=== PATIENT | female | born 2000 | race Two or more races ===

== ENCOUNTER 2018-03-12 21:33 | Emergency (ER) | payer OTHER ==
[~2018-03-12] VITALS: Ht 160 cm; Wt 78.0 kg
[2018-03-12] MEDS ORDERED: PRENATABS FA T1 EACH (22:02)
== END 2018-03-13 02:43 | disposition home or self-care (01) ==
LOC: ER 21:33 → EDSEX 22:03 → ER 22:03
DX: O26.891 Other specified pregnancy related conditions, first trimester (principal); R10.2 Pelvic and perineal pain; Z34.01 Encounter for supervision of normal first pregnancy, first trimester

== ENCOUNTER 2018-03-19 21:38 | Emergency (ER) | payer OTHER ==
[~2018-03-19] VITALS: Ht 160 cm; Wt 78.0 kg
[~2018-03-19 21:38] MED LIST: PRENATABS FA T1 EACH
[2018-03-19] MEDS ORDERED: PROGESTERONE200 MG PO (21:51)
== END 2018-03-20 00:25 | disposition home or self-care (01) ==
LOC: ER 21:38
DX: O20.0 Threatened abortion (principal); Z34.81 Encounter for supervision of other normal pregnancy, first trimester

== ENCOUNTER 2018-03-25 20:36 | Emergency (ER) | payer OTHER ==
[~2018-03-25] VITALS: Ht 160 cm; Wt 78.0 kg
[~2018-03-25 20:36] MED LIST changes: +PROGESTERONE200 MG PO
== END 2018-03-25 23:26 | disposition home or self-care (01) ==
LOC: ER 20:36
DX: O20.8 Other hemorrhage in early pregnancy (principal); Z34.01 Encounter for supervision of normal first pregnancy, first trimester

== ENCOUNTER 2018-04-03 09:23 | Emergency (ER) | payer OTHER ==
[~2018-04-03] VITALS: Ht 160 cm; Wt 78.5 kg
== END 2018-04-03 14:21 | disposition home or self-care (01) ==
LOC: ER 09:23
DX: O98.511 Other viral diseases complicating pregnancy, first trimester (principal); B34.9 Viral infection, unspecified; H10.89 Other conjunctivitis; Z34.01 Encounter for supervision of normal first pregnancy, first trimester

== ENCOUNTER 2018-04-07 19:03 | Emergency (ER) | payer OTHER ==
[~2018-04-07] VITALS: Ht 160 cm; Wt 78.5 kg
== END 2018-04-08 00:32 | disposition home or self-care (01) ==
LOC: ER 19:03
DX: O20.8 Other hemorrhage in early pregnancy (principal); Z34.81 Encounter for supervision of other normal pregnancy, first trimester

== ENCOUNTER 2018-04-12 19:19 | Emergency (ER) | payer OTHER ==
[~2018-04-12] VITALS: Ht 160 cm; Wt 78.9 kg
[2018-04-12] MEDS ORDERED: OBSTETRIX DHA1 EACH (19:30)
[2018-04-12] MEDS ORDERED: PROGESTERONE200 MG (19:31)
[2018-04-12] MEDS ORDERED: CEPHALEXIN500 M1 PO (23:53)
== END 2018-04-13 00:03 | disposition home or self-care (01) ==
LOC: ER 19:19
DX: O20.0 Threatened abortion (principal); O23.41 Unspecified infection of urinary tract in pregnancy, first trimester; Z34.01 Encounter for supervision of normal first pregnancy, first trimester

== ENCOUNTER 2018-04-20 21:51 | Emergency (ER) | payer OTHER ==
[~2018-04-20] VITALS: Ht 160 cm; Wt 78.5 kg
[~2018-04-20 21:51] MED LIST changes: +CEPHALEXIN500 M1 PO; +OBSTETRIX DHA1 EACH; +PROGESTERONE200 MG
== END 2018-04-20 23:11 | disposition home or self-care (01) ==
LOC: ER 21:51
DX: O20.8 Other hemorrhage in early pregnancy (principal); R10.2 Pelvic and perineal pain; Z34.01 Encounter for supervision of normal first pregnancy, first trimester

== ENCOUNTER 2018-04-27 00:24 | Emergency (ER) | payer OTHER ==
[~2018-04-27] VITALS: Ht 160 cm; Wt 78.5 kg
[2018-04-27] MEDS ORDERED: PANADOL EXTRA500 MG (00:56)
== END 2018-04-27 06:45 | disposition home or self-care (01) ==
LOC: ER 00:24
DX: O26.891 Other specified pregnancy related conditions, first trimester (principal); S30.1XXA Contusion of abdominal wall, initial encounter; W18.09XA Striking against other object with subsequent fall, initial encounter; Y93.89 Activity, other specified; Y92.098 Other place in other non-institutional residence as the place of occurrence of the external cause; Y99.8 Other external cause status; Z34.01 Encounter for supervision of normal first pregnancy, first trimester

== ENCOUNTER 2018-05-03 15:11 | Emergency (ER) | payer OTHER ==
[~2018-05-03] VITALS: Ht 160 cm; Wt 78.5 kg
[~2018-05-03 15:11] MED LIST changes: +PANADOL EXTRA500 MG
== END 2018-05-03 20:47 | disposition home or self-care (01) ==
LOC: ER 15:11
DX: O21.0 Mild hyperemesis gravidarum (principal); O23.42 Unspecified infection of urinary tract in pregnancy, second trimester; Z34.02 Encounter for supervision of normal first pregnancy, second trimester

== ENCOUNTER 2018-05-05 17:20 | Emergency (ER) | payer OTHER ==
[~2018-05-05] VITALS: Ht 160 cm; Wt 78.5 kg
[2018-05-05] MEDS ORDERED: DUI500 (18:27)
== END 2018-05-05 21:58 | disposition home or self-care (01) ==
LOC: ER 17:20
DX: O20.8 Other hemorrhage in early pregnancy (principal); Z34.82 Encounter for supervision of other normal pregnancy, second trimester

== ENCOUNTER 2018-05-09 23:12 | Emergency (ER) | payer OTHER ==
[~2018-05-09] VITALS: Ht 160 cm; Wt 78.5 kg
[~2018-05-09 23:12] MED LIST changes: +DUI500
== END 2018-05-10 07:28 | disposition home or self-care (01) ==
LOC: ER 23:12
DX: O26.892 Other specified pregnancy related conditions, second trimester (principal); R10.2 Pelvic and perineal pain; Z34.02 Encounter for supervision of normal first pregnancy, second trimester

== ENCOUNTER 2018-05-11 08:17 | Day surgery (SDC) | payer OTHER | END 2018-05-11 16:05 | disposition home or self-care (01) | LOC: CIR.AMB 08:17 | DX: O34.32 Maternal care for cervical incompetence, second trimester (principal); Z3A.16 16 weeks gestation of pregnancy ==

== ENCOUNTER 2018-05-15 16:10 | Emergency (ER) | payer OTHER ==
[~2018-05-15] VITALS: Ht 160 cm; Wt 78.5 kg
== END 2018-05-15 19:39 | disposition home or self-care (01) ==
LOC: ER 16:10
DX: N30.80 Other cystitis without hematuria (principal)

== ENCOUNTER 2018-05-31 19:29 | Emergency (ER) | payer OTHER ==
[~2018-05-31] VITALS: Ht 160 cm; Wt 60.8 kg
== END 2018-06-01 00:03 | disposition home or self-care (01) ==
LOC: ER 19:29
DX: O20.0 Threatened abortion (principal); Z34.02 Encounter for supervision of normal first pregnancy, second trimester

== ENCOUNTER 2018-06-10 21:16 | Outpatient (CLI) | payer OTHER ==
[2018-06-11] MEDS ORDERED: IRON325 MG PO (08:16)
== END 2018-06-11 09:45 | disposition home or self-care (01) ==
LOC: OBS/DEL 21:16
DX: O34.32 Maternal care for cervical incompetence, second trimester (principal); O99.012 Anemia complicating pregnancy, second trimester; D64.89 Other specified anemias; Z34.02 Encounter for supervision of normal first pregnancy, second trimester

== ENCOUNTER 2018-06-22 17:32 | Inpatient (IN) | payer OTHER ==
[~2018-06-22] VITALS: Ht 160 cm; Wt 78.9 kg
[~2018-06-22 17:32] MED LIST changes: +IRON325 MG PO
[2018-06-25] MEDS ORDERED: PRENATAL DHA200 MG PO (08:26)
[2018-06-25] MEDS ORDERED: IRON325 MG PO (08:26)
[2018-06-25] MEDS ORDERED: KEFLEX500 MG PO (08:30)
[2018-06-25] MEDS ORDERED: NIFE60TA3 PO (08:30)
== END 2018-06-25 10:56 | DRG 832 ==
LOC: OBS/DEL 17:32 → OB/GYN 06-23 14:30 → LDR 06-23 14:30 → OB/GYN 06-23 17:10
PROC: 4A1HXCZ Monitoring of Products of Conception, Cardiac Rate, External Approach (ICD-10-PCS; principal; 2018-06-23)
DX: O26.872 Cervical shortening, second trimester (principal); O23.32 Infections of other parts of urinary tract in pregnancy, second trimester; O23.12 Infections of bladder in pregnancy, second trimester; O26.22 Pregnancy care for patient with recurrent pregnancy loss, second trimester; O34.32 Maternal care for cervical incompetence, second trimester; O99.012 Anemia complicating pregnancy, second trimester; D64.89 Other specified anemias; Z34.82 Encounter for supervision of other normal pregnancy, second trimester

== ENCOUNTER 2018-08-10 19:12 | Inpatient (IN) | payer OTHER ==
[~2018-08-10] VITALS: Ht 160 cm; Wt 78.9 kg
[~2018-08-10 19:12] MED LIST changes: +KEFLEX500 MG PO; +NIFE60TA3 PO; +PRENATAL DHA200 MG PO
[2018-08-10] MEDS ORDERED: NIFE60TA3 PO (19:22)
[2018-08-10] MEDS ORDERED: PRENATAL TABLE1 EAC1 PO (19:22)
== END 2018-08-13 16:20 | disposition left against medical advice (07) | DRG 833 ==
LOC: OBS/DEL 19:12 → LDR 08-11 09:47 → OBS/DEL 08-11 09:47 → OB/GYN 08-12 10:28
PROVIDERS: ADMIT Specialist
PROC: BY4FZZZ Ultrasonography of Third Trimester, Single Fetus (ICD-10-PCS; principal; 2018-08-11)
PROC: 4A1HXCZ Monitoring of Products of Conception, Cardiac Rate, External Approach (ICD-10-PCS; 2018-08-11)
DX: O47.03 False labor before 37 completed weeks of gestation, third trimester (principal); Z34.83 Encounter for supervision of other normal pregnancy, third trimester

== ENCOUNTER 2018-09-24 06:50 | Outpatient (CLI) | payer OTHER ==
[~2018-09-24 06:50] MED LIST changes: +PRENATAL TABLE1 EAC1 PO
[2018-09-24] MEDS ORDERED: AMPICILLIN TRI500 MG PO (08:26)
== END 2018-09-24 11:01 | disposition home or self-care (01) ==
LOC: OBS/DEL 06:50
DX: O60.03 Preterm labor without delivery, third trimester (principal); O23.593 Infection of other part of genital tract in pregnancy, third trimester; B96.89 Other specified bacterial agents as the cause of diseases classified elsewhere; N76.0 Acute vaginitis; Z34.83 Encounter for supervision of other normal pregnancy, third trimester

== ENCOUNTER 2018-09-27 09:47 | Outpatient (CLI) | payer OTHER ==
[~2018-09-27 09:47] MED LIST changes: +AMPICILLIN TRI500 MG PO
== END 2018-09-27 10:31 | disposition home or self-care (01) ==
LOC: NST 09:47
DX: Z34.83 Encounter for supervision of other normal pregnancy, third trimester (principal)

== ENCOUNTER 2018-10-02 09:30 | Inpatient (IN) | payer OTHER ==
[~2018-10-02] VITALS: Ht 160 cm; Wt 89.8 kg
== END 2018-10-11 15:23 | DRG 768 ==
LOC: LDR 09:30 → OB/GYN 10-09 05:12 → LDR 10-09 05:12 → OB/GYN 10-09 20:22
PROVIDERS: ADMIT Specialist
PROC: 10E0XZZ Delivery of Products of Conception, External Approach (ICD-10-PCS; principal; 2018-10-09)
PROC: 0UQC0ZZ Repair Cervix, Open Approach (ICD-10-PCS; 2018-10-09)
PROC: 4A1HXCZ Monitoring of Products of Conception, Cardiac Rate, External Approach (ICD-10-PCS; 2018-10-09)
DX: O71.3 Obstetric laceration of cervix (principal); Z37.0 Single live birth; Z3A.38 38 weeks gestation of pregnancy; Z22.330 Carrier of Group B streptococcus

== ENCOUNTER 2021-07-30 06:47 | Day surgery (SDC) | payer OTHER | END 2021-07-30 17:55 | disposition home or self-care (01) | LOC: CIR.AMB 06:47 | PROVIDERS: ATTEND Specialist | DX: O34.31 Maternal care for cervical incompetence, first trimester (principal); Z3A.12 12 weeks gestation of pregnancy; Z20.822 Contact with and (suspected) exposure to COVID-19 ==

== ENCOUNTER 2021-09-24 16:08 | Outpatient (CLI) | payer OTHER ==
[2021-09-24] MEDS ORDERED: ENDOMETRIN100 MG (17:06)
== END 2021-09-24 18:00 | disposition home or self-care (01) ==
LOC: OBS/DEL 16:08
PROVIDERS: ATTEND Specialist
DX: O26.892 Other specified pregnancy related conditions, second trimester (principal); R10.2 Pelvic and perineal pain; Z3A.20 20 weeks gestation of pregnancy

== ENCOUNTER → 2022-01-28 | Outpatient (CLI) | payer OTHER ==
[~2022-01-28] MED LIST changes: +ENDOMETRIN100 MG; +FERROUS SULFAT325 MG PO
== END | disposition left against medical advice (07) ==
LOC: OBS/DEL 20:13
PROVIDERS: ATTEND Specialist
DX: O47.1 False labor at or after 37 completed weeks of gestation (principal); Z3A.38 38 weeks gestation of pregnancy

== ENCOUNTER 2022-02-04 05:13 | Inpatient (IN) | payer OTHER ==
[~2022-02-04] VITALS: Ht 160 cm; Wt 88.5 kg
[~2022-02-04 05:13] MED LIST changes: -FERROUS SULFAT325 MG PO
[2022-02-06] MEDS ORDERED: FERROUS SULFAT325 MG PO (08:12)
== END 2022-02-06 12:59 | disposition home or self-care (01) | DRG 768 ==
LOC: LDR 05:13 → OB/GYN 05:13 → O/R 18:31 → OB/GYN 02-05 07:42
PROVIDERS: ADMIT Specialist; ATTEND Specialist
PROC: 0UQC7ZZ Repair Cervix, Via Natural or Artificial Opening (ICD-10-PCS; 2022-02-04)
PROC: 3E033VJ Introduction of Other Hormone into Peripheral Vein, Percutaneous Approach (ICD-10-PCS; 2022-02-04)
PROC: 4A1HXCZ Monitoring of Products of Conception, Cardiac Rate, External Approach (ICD-10-PCS; 2022-02-04)
PROC: 10E0XZZ Delivery of Products of Conception, External Approach (ICD-10-PCS; principal; 2022-02-04 15:00)
DX: O71.3 Obstetric laceration of cervix (principal); O72.1 Other immediate postpartum hemorrhage; Z37.0 Single live birth; Z3A.39 39 weeks gestation of pregnancy; Z20.822 Contact with and (suspected) exposure to COVID-19

== ENCOUNTER 2022-09-26 23:12 | Emergency (ER) | payer OTHER ==
[~2022-09-26] VITALS: Ht 160 cm; Wt 78.9 kg
[~2022-09-26 23:12] MED LIST changes: +FERROUS SULFAT325 MG PO
== END 2022-09-27 04:49 | disposition home or self-care (01) ==
LOC: ER 23:12
DX: O03.6 Delayed or excessive hemorrhage following complete or unspecified spontaneous abortion (principal)

== ENCOUNTER 2024-02-19 10:07 | Inpatient (IN) | payer OTHER ==
[~2024-02-19] VITALS: Ht 160 cm; Wt 81.6 kg
--- NOTE | 2024-02-19 10:32 | NUR ---
PTE FEMENINA REFIERE EMBARAZADA DE 9 SEMANAS DE GESTACION CON SANGRADO PROFUSO Y CUAGULOS.PTE REFIERE COMENZANDO DOLOR HACE VARIOS MINUTOS, SE LE MAGI S/V Y SE UBICA EN EZEKIEL .
--- NOTE | 2024-02-19 11:19 | NUR ---
RN DIAZ EDUCA APTE SOBRE TX A RECIBIR EN EL AREA LA MISMA REFIERE ENTENDER. SE REALIZAN MUESTRAS GARY ORDEN MEDICA Y SE ENVIAN DE FORMA INMEDIATA. SE NOTIFICA A SECRETARIA DE TURNO SOBRE ESTUDIO PENDIENTE.
[2024-02-19 12:13] LABS: HEMATOCRIT 33.3 % (36.0-45.00); HEMOGLOBIN 11.2 g/dL (12.0-15.00); MEAN CELL VOLUME 79.1 fL (80.00-100.00); MEAN CORPUSCULAR HEMOGLOBIN 26.6 pg (27.00-32.0); MEAN CORPUSCULAR HGB CONC 33.6 g/dl (32.0-36.0); PLATELET COUNT 292 K/uL (150-450); RED BLOOD COUNT 4.21 M/uL (4.00-6.00); RED CELL DISTRIBUTION WIDTH 14.4 % (11.5-14.5)
[2024-02-19] MEDS ORDERED: PROMETHAZINE HCL 50 MG/ML AMPUL IM ONE (13:15)
[2024-02-19] MEDS ORDERED: ACETAMINOPHEN 500 MG GEL..CAP PO ONE (13:15)
[2024-02-19] MEDS ORDERED: MEPERIDINE HCL/PF 50 MG/ML VIAL IM PRN (15:30)
[2024-02-19] MEDS ORDERED: RINGERS SOLUTION,LACTATED 1,000 ML IV SCH (15:30)
[2024-02-19] MEDS ORDERED: OXYTOCIN 20 UNITS/1000ML RL PIGGYBAG IV SCH (15:30)
[2024-02-19 16:38] LABS: INR 1.02; PARTIAL THROMBOPLASTIN TIME 26.8 SECONDS (22.0-34.0); PROTHROMBIN TIME 10.7 SECONDS (9.0-11.5)
[2024-02-19] MEDS ORDERED: ONDANSETRON HCL 2 MG/ML VIAL IV SCH (17:00)
[2024-02-19] MEDS ORDERED: CEFAZOLIN SODIUM 1,000 MG in DEXTROSE 5 % IN WATER 50 ML IV SCH (17:00)
[2024-02-20] MEDS ORDERED: OxyCODONE HCL/APAP UD (PERCOCET) PO PRN (16:15)
[2024-02-20] MEDS ORDERED: ACETAMINOPHEN 500 MG GEL..CAP PO PRN (16:15)
[2024-02-20] MEDS ORDERED: POVIDONE-IODINE 118 ML BOTT TOP ONE (16:30)
[2024-02-20] MEDS ORDERED: OXYTOCIN 20 UNITS/1000ML RL PIGGYBAG IV ONE (16:30)
[2024-02-20] MEDS ORDERED: CEFAZOLIN SODIUM 1,000 MG VIAL IV ONE (16:30)
[2024-02-21 04:57] LABS: HEMATOCRIT 25.6 % (36.0-45.00); HEMOGLOBIN 8.6 g/dL (12.0-15.00); MEAN CELL VOLUME 78.2 fL (80.00-100.00); MEAN CORPUSCULAR HEMOGLOBIN 26.2 pg (27.00-32.0); MEAN CORPUSCULAR HGB CONC 33.6 g/dl (32.0-36.0); PLATELET COUNT 219 K/uL (150-450); RED BLOOD COUNT 3.27 M/uL (4.00-6.00); RED CELL DISTRIBUTION WIDTH 14.4 % (11.5-14.5)
[2024-02-21] MEDS ORDERED: FERROUS SULFAT325 MG PO (08:15)
== END 2024-02-21 09:58 | disposition home or self-care (01) | DRG 779 ==
LOC: ER 10:09 → OB/GYN 15:58
PROVIDERS: General Practice; ADMIT Specialist; ATTEND Specialist
PROC: BU4CZZZ Ultrasonography of Uterus and Ovaries (ICD-10-PCS; principal; 2024-02-19)
PROC: BY49ZZZ Ultrasonography of First Trimester, Single Fetus (ICD-10-PCS; 2024-02-19)
PROC: 3E033VJ Introduction of Other Hormone into Peripheral Vein, Percutaneous Approach (ICD-10-PCS; 2024-02-19)
PROC: 10D17Z9 Manual Extraction of Products of Conception, Retained, Via Natural or Artificial Opening (ICD-10-PCS; 2024-02-20)
DX: O03.4 Incomplete spontaneous abortion without complication (principal); O36.80X0 Pregnancy with inconclusive fetal viability, not applicable or unspecified; D64.9 Anemia, unspecified; O26.851 Spotting complicating pregnancy, first trimester; Z3A.01 Less than 8 weeks gestation of pregnancy; Z20.822 Contact with and (suspected) exposure to COVID-19

== ENCOUNTER 2024-07-03 08:48 | Emergency (ER) | payer OTHER ==
[~2024-07-03] VITALS: Ht 160 cm; Wt 81.2 kg
[2024-07-03 08:51] VITALS: BP 120/69; O2SAT 97
[2024-07-03 10:49] LABS: URINE APPEARANCE Cloudy; URINE BILIRRUBIN Negative (NEGATIVE); URINE BLOOD Large; URINE COLOR Yellow; URINE GLUCOSE Negative (NEGATIVE); URINE KETONE Negative (NEGATIVE); URINE LEUKOCYTE Large; URINE NITRATE Negative; URINE PROTEIN Negative (NEGATIVE); URINE UROBILINOGEN 0.2 E.U./dl
[2024-07-03 10:53] LABS: URINE BACTERIA 2194.8 uL (0.0-1933); URINE EPITHELIAL CELLS 77.9 uL (0.0-38.8); URINE RBC 20.1 uL (0.0-20.8); URINE WBC 122.1 uL (0.0-23.2)
[2024-07-03 10:58] LABS: HEMATOCRIT 34.6 % (36.0-45.00); HEMOGLOBIN 11.2 g/dL (12.0-15.00); MEAN CORPUSCULAR HEMOGLOBIN 23.7 pg (27.00-32.0); MEAN CORPUSCULAR HGB CONC 32.5 g/dl (32.0-36.0); PLATELET COUNT 304 K/uL (150-450); RED BLOOD COUNT 4.75 M/uL (4.00-6.00)
[2024-07-03 11:00] LABS: MEAN CELL VOLUME 72.9 fL (80.00-100.00); RED CELL DISTRIBUTION WIDTH 17.8 % (11.5-14.5)
[2024-07-03 11:07] LABS: URINE CAST 0.45 uL (0.0-1.40)
[2024-07-03 11:41] LABS: CREATININE SERUM 0.7 mg/dL (0.55-1.02); GFR 101.95; POTASSIUM 4.21 mEq/L (3.5-5.1)
== END 2024-07-03 13:58 | disposition home or self-care (01) ==
LOC: ER 08:50
PROVIDERS: General Practice
DX: O20.9 Hemorrhage in early pregnancy, unspecified (principal); Z3A.01 Less than 8 weeks gestation of pregnancy; Z87.09 Personal history of other diseases of the respiratory system

== ENCOUNTER 2024-07-23 14:47 | Emergency (ER) | payer OTHER ==
[~2024-07-23] VITALS: Ht 162.6 cm; Wt 79.4 kg
[2024-07-23] MEDS ORDERED: PRENATABS RX T1 EACH (15:15)
[2024-07-23] MEDS ORDERED: PROMETRIUM200 MG (15:15)
[2024-07-23 16:51] LABS: HEMATOCRIT 37.3 % (36.0-45.00); HEMOGLOBIN 12.3 g/dL (12.0-15.00); MEAN CELL VOLUME 74.4 fL (80.00-100.00); MEAN CORPUSCULAR HEMOGLOBIN 24.4 pg (27.00-32.0); MEAN CORPUSCULAR HGB CONC 32.9 g/dl (32.0-36.0); PLATELET COUNT 314 K/uL (150-450); RED BLOOD COUNT 5.02 M/uL (4.00-6.00); RED CELL DISTRIBUTION WIDTH 17.7 % (11.5-14.5)
[2024-07-23 17:50] LABS: PH,URINE 7.5 (5.0-8.0); URINE APPEARANCE Clear; URINE BILIRRUBIN Negative (NEGATIVE); URINE BLOOD Moderate; URINE COLOR Yellow; URINE GLUCOSE Negative (NEGATIVE); URINE KETONE Negative (NEGATIVE); URINE LEUKOCYTE Negative; URINE NITRATE Negative; URINE PROTEIN Negative (NEGATIVE); URINE UROBILINOGEN 0.2 E.U./dl
[2024-07-23 17:54] LABS: URINE BACTERIA 1900.5 uL (0.0-1933); URINE EPITHELIAL CELLS 27.8 uL (0.0-38.8); URINE RBC 3.3 uL (0.0-20.8)
== END 2024-07-23 19:51 | disposition home or self-care (01) ==
LOC: ER 14:49
PROVIDERS: General Practice
DX: O20.9 Hemorrhage in early pregnancy, unspecified (principal); Z3A.10 10 weeks gestation of pregnancy

== ENCOUNTER → 2024-07-25 | Day surgery (SDC) | payer OTHER ==
--- NOTE | 2024-07-24 16:59 | NUR ---
PTE ALERTA Y ORIENTADA X3. REFIERE TENER 6 SEMANAS DE EMBARAZO Y KOLBY EXPERIMENTADO UN ABORTO. REFIERE QUE TAYLOR GINECOLOGO ES DR. BLUE PEREZ. SE YVES DALILA Y SE UBICA
--- NOTE | 2024-07-24 17:31 | NUR ---
PTE EVALUADA POR LA DRA. COELLO. JIM COELLO COLECTA MUESTRA DE LAB GARY ORDEN MEDICA BAJO MEDIDAS ASEPTICAS. SE NOTIFICA SONOGRAMA PENDIENTE.
[2024-07-24 17:39] LABS: HEMATOCRIT 35.6 % (36.0-45.00); HEMOGLOBIN 11.8 g/dL (12.0-15.00); MEAN CELL VOLUME 74.4 fL (80.00-100.00); MEAN CORPUSCULAR HEMOGLOBIN 24.7 pg (27.00-32.0); MEAN CORPUSCULAR HGB CONC 33.2 g/dl (32.0-36.0); PLATELET COUNT 297 K/uL (150-450); RED BLOOD COUNT 4.79 M/uL (4.00-6.00); RED CELL DISTRIBUTION WIDTH 17.7 % (11.5-14.5)
--- NOTE | 2024-07-24 18:38 | NUR ---
SE CANALIZA Y SE ADMINISTRAN MEDICAMENTOS GARY ORDEN MEDICA.
[2024-07-24 19:46] LABS: INR 1.04; PARTIAL THROMBOPLASTIN TIME 31.3 SECONDS (22.0-34.0); PROTHROMBIN TIME 11.3 SECONDS (9.0-11.5)
[2024-07-24 21:47] LABS: URINE APPEARANCE Clear; URINE BILIRRUBIN Negative (NEGATIVE); URINE BLOOD Negative; URINE COLOR Yellow; URINE GLUCOSE Negative (NEGATIVE); URINE KETONE Negative (NEGATIVE); URINE LEUKOCYTE Negative; URINE NITRATE Negative; URINE PROTEIN Negative (NEGATIVE)
[2024-07-24 21:50] LABS: URINE BACTERIA 482.2 uL (0.0-1933); URINE EPITHELIAL CELLS 12.4 uL (0.0-38.8); URINE WBC 3.4 uL (0.0-23.2)
[2024-07-24 22:03] LABS: URINE CAST 0.58 uL (0.0-1.40); URINE RBC 1.7 uL (0.0-20.8)
[~2024-07-25] VITALS: Ht 160 cm; Wt 76.7 kg
[~2024-07-25] MED LIST changes: +CEFAZOLIN SODIUM 1,000 MG VIAL IV SCH; +FAMOtidine 10 MG/ML (4ML VIAL) IV ONE; +KETOROLAC TROMETHAMINE 60 MG VIAL IM STA; +MORPHINE SULFATE 4 MG/ML VIAL IV ONE; +OXYTOCIN 10 UNITS/ML VIAL IV SCH; +OXYTOCIN 20 UNITS/1000ML RL PIGGYBAG IV ONE; +PRENATABS RX T1 EACH; +PROMETRIUM200 MG; +RINGERS SOLUTION,LACTATED 1,000 ML IV ONE
--- NOTE | 2024-07-25 05:54 | NUR ---
DR MCARTHUR VISITA A PTE Y EDUCA A LA MISMA.
--- NOTE | 2024-07-25 06:05 | NUR ---
SE EDUCA A PTE SOBRE ORDENES DE ADMISION A REALIZAR POR DR PEREZ LA MISMA ALERTA Y ORIENTADA X3 REFIERE ENTENDER. SE REALIZAN MUESTRAS DE LAB GARY ORDEN MEDICA Y SE LE YARA ROPA PARA EVAN DE OPOERACIONES. DR PEREZ LE YARA DOCUMENTO PARA AUTORIZACION DE PROCESO CON DR. SE EDUCA A LA MISMA SOBRE PERTENENCIAS Y PROCESO A SEGUIR LA MISMA REFIERE QUE FAMILAIR LA ACOMPANARA EN PROCESO. SE MARIA DOLORES DOCUMENTOS EN COUNTER DE ENFERMERIA PARA SER ENTREGADOS A TURNO SIGUIENTE O QUE SUBAN CON PTE EN ADMISION A EVAN DE OPERACIONES.
[2024-07-25 22:18] VITALS: BP 142/72; O2SAT 100
== END | disposition home or self-care (01) ==
LOC: EDSTATUS 07-24 16:19 → ER 07-24 16:19 → CIR.AMB 06:00 → ER 06:00 → CIR.AMB 06:00 → SEC-K 06:00 → O/R 06:00 → SEC-K 09:43 → O/R 09:43
PROVIDERS: General Practice; ATTEND Specialist
DX: O03.4 Incomplete spontaneous abortion without complication (principal); Z3A.08 8 weeks gestation of pregnancy; J45.909 Unspecified asthma, uncomplicated; F41.9 Anxiety disorder, unspecified